=== PATIENT | male | born 1970 | race Caucasian/White ===

== ENCOUNTER 2021-06-06 06:00 | Outpatient (RCR) | payer SELFPAY | END 2021-07-02 23:59 | disposition home or self-care (01) | LOC: WR3 06:00 | PROVIDERS: Family Provider Nurse Practitioner; PCP Nurse Practitioner Family; Referring Provider Family Medicine; Visit Provider Family Medicine | DX: I69.151 Hemiplegia and hemiparesis following nontraumatic intracerebral hemorrhage affecting right dominant side (principal) | CPT/HCPCS: 92523; 97110; 97112; 97162; 97166; 97530 ==

== ENCOUNTER 2021-07-03 06:00 | Outpatient (RCR) | payer MEDICAID, SELFPAY | END 2021-08-01 23:59 | disposition home or self-care (01) | LOC: WR3 06:00 | PROVIDERS: Family Provider Nurse Practitioner; PCP Nurse Practitioner Family; Referring Provider Family Medicine; Visit Provider Family Medicine | DX: I69.151 Hemiplegia and hemiparesis following nontraumatic intracerebral hemorrhage affecting right dominant side (principal) | CPT/HCPCS: 97110 ==

== ENCOUNTER → 2021-08-28 08:23 | Outpatient (BNVA) | payer MEDICAID, SELFPAY | PROVIDERS: Family Provider Nurse Practitioner; PCP Family Medicine; Visit Provider Family Medicine | DX: I69.30 Unspecified sequelae of cerebral infarction (principal); I10 Essential (primary) hypertension; Z79.899 Other long term (current) drug therapy | CPT/HCPCS: 80053; 80061; 83036; 83880; 84443; 85025 ==

== ENCOUNTER → 2021-10-01 09:11 | Outpatient (BNVA) | payer MEDICAID, SELFPAY | PROVIDERS: Family Provider Nurse Practitioner; PCP Family Medicine; Visit Provider Family Medicine | DX: M54.50 Low back pain, unspecified (principal); W19.XXXA Unspecified fall, initial encounter; M25.569 Pain in unspecified knee; M25.551 Pain in right hip; M25.552 Pain in left hip | CPT/HCPCS: 72100; 73523; 73560 ==

== ENCOUNTER → 2021-12-31 14:32 | Outpatient (BNVA) | payer MEDICAID, SELFPAY | PROVIDERS: Family Provider Nurse Practitioner; PCP Family Medicine; Visit Provider Family Medicine | DX: R60.0 Localized edema (principal) | CPT/HCPCS: 80053; 83880 ==

== ENCOUNTER 2022-10-30 07:53 | Outpatient (CLI) | payer MEDICAID, SELFPAY ==
--- NOTE | 2022-10-30 09:30 | CT_ITS ---
WS: [id number] CT HEAD TECHNIQUE: Noncontrast CT of the head obtained from the skullbase to the vertex. CLINICAL INFORMATION: I69.30 - Unspecified sequelae of cerebral infarction COMPARISON: None. DLP: 1038.[address] scans at [facility] use at least one of these dose optimization techniques: automated e xposure control; mA and/or kV adjustment per patient size (includes targeted exams where dose is matc hed to clinical indication); or iterative reconstruction. FINDINGS: No evidence of intracranial hemorrhage or mass effect. Ventricular system and basal cisterns are rousseau nt. Minimal small vessel changes with mild parenchymal volume loss. No extra-axial fluid collections. No evidence of mass or mass effect. Vascular calcification. Paranasal sinuses and mastoid air cells are well aerated. .Normal visualized soft tissues. CT/CT head wo con* [id number] IMPRESSION: 1. No evidence of intracranial hemorrhage or mass effect. 2. Minimal small vessel changes. Mild parenchymal volume loss. 3. No acute intracranial findings.
== END 2022-10-30 07:54 | disposition home or self-care (01) ==
LOC: RAD 07:54
PROVIDERS: PCP Family Medicine; Visit Provider Family Medicine
DX: I69.30 Unspecified sequelae of cerebral infarction (principal)
CPT/HCPCS: 70450

== ENCOUNTER → 2023-02-24 15:42 | Outpatient (BNVA) | payer MEDICAID, SELFPAY | PROVIDERS: PCP Family Medicine; Visit Provider Family Medicine | DX: E66.9 Obesity, unspecified (principal); I50.9 Heart failure, unspecified; I69.30 Unspecified sequelae of cerebral infarction | CPT/HCPCS: 80053; 80061; 83036; 84443; 85025 ==

== ENCOUNTER → 2023-03-31 10:22 | Outpatient (BNVA) | payer MEDICAID, SELFPAY | PROVIDERS: PCP Family Medicine; Visit Provider Family Medicine | DX: D75.1 Secondary polycythemia (principal); E66.01 Morbid (severe) obesity due to excess calories; R06.83 Snoring | CPT/HCPCS: 82668; 85025 ==

== ENCOUNTER 2023-04-28 09:00 | Outpatient (CLI) | payer MEDICAID, SELFPAY | END 2023-04-28 09:01 | disposition home or self-care (01) | LOC: SLEEP 04-29 10:36 | PROVIDERS: PCP Family Medicine; Visit Provider Family Medicine | DX: G47.33 Obstructive sleep apnea (adult) (pediatric) (principal); R09.02 Hypoxemia | CPT/HCPCS: G0399 ==

== ENCOUNTER → 2023-11-11 08:48 | Outpatient (BNVA) | payer MEDICARE, MEDICAID, SELFPAY | PROVIDERS: PCP Nurse Practitioner Family; Visit Provider Nurse Practitioner Family | DX: R53.83 Other fatigue (principal); I50.9 Heart failure, unspecified; I10 Essential (primary) hypertension; G47.33 Obstructive sleep apnea (adult) (pediatric) | CPT/HCPCS: 80053; 80061; 83880; 85025 ==

== ENCOUNTER → 2023-11-18 09:32 | Outpatient (BNVA) | payer MEDICARE, MEDICAID, SELFPAY | PROVIDERS: PCP Nurse Practitioner Family; Visit Provider Nurse Practitioner Family | DX: R07.9 Chest pain, unspecified (principal); I45.10 Unspecified right bundle-branch block | CPT/HCPCS: 93005 ==

== ENCOUNTER → 2024-01-18 09:12 | Outpatient (BNVA) | payer MEDICARE, SELFPAY | PROVIDERS: PCP Nurse Practitioner Family; Referring Provider Nurse Practitioner Family; Visit Provider Psychiatry & Neurology Neurology | DX: I69.351 Hemiplegia and hemiparesis following cerebral infarction affecting right dominant side (principal); I69.398 Other sequelae of cerebral infarction; I11.0 Hypertensive heart disease with heart failure; I50.9 Heart failure, unspecified | CPT/HCPCS: 99203 ==

== ENCOUNTER → 2024-01-20 14:11 | Outpatient (BNVA) | payer MEDICARE, SELFPAY | PROVIDERS: PCP Nurse Practitioner Family; Referring Provider Nurse Practitioner Family; Visit Provider Internal Medicine | DX: R07.9 Chest pain, unspecified (principal); I45.10 Unspecified right bundle-branch block; I44.7 Left bundle-branch block, unspecified | CPT/HCPCS: 93005; 99204 ==

== ENCOUNTER 2024-01-27 10:04 | Outpatient (CLI) | payer MEDICARE, SELFPAY ==
[2024-01-27 11:00] VITALS: BMI 47.5
--- NOTE | 2024-01-27 11:05 | ECG_ITS ---
[facility] Test Date: 2024-01-27 Pat Name: Gordon Quintero Department: Room: Gender: Male Systems Integration Manager: : 1970 Requested By: Fritz Ying Order Number: [id number] Litzy MD: Fritz Ying M.D. Interpretive Statements NAME OF STUDY: LEXISCAN SESTAMIBI STRESS TEST INDICATION: [Chest Pain] Procedure: At the baseline, the blood pressure was 106/58 mmHg with a heart rate of 76 bpm. The electrocardiogram showed normal sinus rhythm, right bundle branch block. The Lexiscan was infused over a period of 20 seconds. A total of 0.4 mg of Lexiscan was infused. The stress phase was continued for a total of 5 minutes. Heart rate was at the end of stress phase was 91 bpm and a blood pressure of 108/79 mmHg. The EKG at the peak infusion revealed normal sinus rhythm with no significant ST-T wave changes. Sestamibi was injected 20 seconds after the Lexiscan infusion. Blood pressure at the end of recovery phase was 110/86 mmHg with a heart rate of 85 bpm. Conclusion: 1. Normal EKG response to Lexiscan infusion 2. No Lexiscan induced chest pain or cardiac arrhythmia. 3. Normal blood pressure and heart rate response. 4. Sestamibi/sestamibi perfusion scan pending; see separate report. Electronically Signed On 02-04-2024 12:15:01 CDT by Fritz Ying M.D. [email or web address]
--- NOTE | 2024-01-27 11:06 | NMCV_ITS ---
NM [facility]ley perf SPECT r/s* [id number] Gordon Quintero Age: 54 Gender: M : 1970 Exam Date: 01/27/2024 11:06 Ordering Phys: Fritz Ying M.D ([email or web address]) Technologist: YOMI Rodriguez Exam Location: [facility] Indications: CHEST PAIN STRESS TEST Please see separate stress test report in [facility] for full findings IMAGE PROTOCOL Rest/Stress 1 Lexiscan Day Radiopharmaceutical Dose (mCi) Administration Site Administered by Rest: Tc-99m 10.9 IV YOMI Rodriguez Sestamibi Stress:Tc-99m 33.0 IV YOMI Rodriguez Sestamibi Rest: 27-Jan-2024 60 Discovery 630 Stress: 27-Jan-2024 30 Discovery 630 0.4mg Lexiscan. Supine position only as patient was unable to lay prone. SPECT RESULTS Technical Quality: Excellent Raw Data Analysis: Normal Image Corrections: No attenuation or motion correction applied Summed Stress Score: 4 Summed Rest Score: 6 Summed Difference Score: 1 PERFUSION FINDINGS There is a small sized area of fixed perfusion defect of moderate intensity in the inferior wall. This is consistent with small area of prior infarct in the RCA territory. FUNCTIONAL RESULTS (calculated via Gated SPECT) Stress Image LV EF (%): 59 Stress EDV (mL):104 TID: 0.99 Stress ESV (mL):43 FUNCTIONAL FINDINGS: There is normal left ventricular systolic function. IMPRESSIONS 1. Small area of prior infarct seen in the RCA territory. 2. LV systolic function is normal Fritz Ying MD (Electronically Signed) Final Date: 30 January 2024 07:37 S
[2024-01-27] MEDS: regadenoson 0.4 Mg/5 ml Syringe 0.400000000000000022 MG IVP (12:05)
[2024-01-27 12:25] VITALS: BP 110/74; PULSE 62
== END 2024-01-27 10:05 | disposition home or self-care (01) ==
LOC: CDL 10:05
PROVIDERS: PCP Nurse Practitioner Family; Visit Provider Internal Medicine
DX: R07.9 Chest pain, unspecified (principal)
CPT/HCPCS: 36415; 78452; 93017; 96374; A9500; J2785

== ENCOUNTER 2024-02-02 09:02 | Outpatient (CLI) | payer MEDICARE, SELFPAY ==
--- NOTE | 2024-02-02 09:15 | USCV_ITS ---
Gordon Quintero Age: 54 Gender: M : 1970 Exam Date: 02/02/2024 09:15 Ordering Phys: Fritz Ying M.D ([email or web address]) Technologist: Exam Location: [facility] Indication: hx cva BP: 119 / 70 HR: 76 Rhythm: Sinus Technical Quality: Adequate MEASUREMENTS (Male / Female) Normal Values 2D ECHO LV Diastolic Diameter PLAX 3.2 cm 4.2 - 5.9 / 3.9 - 5.3 cm IVS Diastolic Thickness 1.5 cm 0.6 - 1.0 / 0.6 - 0.9 cm IVS Systolic Thickness 1.8 cm LVPW Diastolic Thickness 1.1 cm 0.6 - 1.0 / 0.6 - 0.9 cm LVPW Systolic Thickness 2.0 cm LVOT Diameter 2.1 cm LV Ejection Fraction 2D Teich 57.5 % LV Ejection Fraction MOD 2C 63.8 % LV Ejection Fraction 2C AL 63.5 % LA Diameter 3.5 cm RA Systolic Volume 4C AL 51.4 ml RA Systolic Volume 4C MOD 48.8 ml Aorta at Sinotubular Diameter 2.8 cm IVC Diameter 2.0 cm DOPPLER AV Peak Velocity 122.0 cm/s LVOT Peak Velocity 106.0 cm/s AV Area Cont Eq vti 4.0 cm squared AV Area Cont Eq pk 3.1 cm squared MV Peak Velocity 82.0 cm/s MV Area PHT 4.6 cm squared Mitral E to A Ratio 0.9 TV Peak Velocity 81.0 cm/s TR Peak Velocity 104.0 cm/s TR Peak Gradient 4.3 mmHg TV Peak E Velocity 79.0 cm/s Right Atrial Pressure 3.0 mmHg Pulmonary Artery Systolic Pressu 7.3 mmHg PV Peak Velocity 85.0 cm/s FINDINGS Left Ventricle Left ventricle is normal size. LV systolic function is normal with EF of 55 to 60%. No regional wall motion abnormalities are seen. Right Ventricle Normal in size and function Right Atrium Normal in size Left Atrium Normal in size Mitral Valve Structurally normal mitral valve. Trace mitral regurgitation. Aortic Valve Structurally normal aortic valve. No significant stenosis or regurgitation. Tricuspid Valve Mild tricuspid regurgitation. Insufficient TR jet to calculate RVSP. Pulmonic Valve Not well visualized Pericardium Normal Aorta Normal in size IVC Appears to be normal CONCLUSIONS LV systolic function is normal with EF of 55-60% Trace mitral regurgitation Mild tricuspid regurgitation No comparison studies are available. Fritz Ying MD (Electronically Signed) Final Date: 13 February 2024 19:22 S
== END 2024-02-02 09:03 | disposition home or self-care (01) ==
LOC: RAD 09:02
PROVIDERS: PCP Nurse Practitioner Family; Visit Provider Internal Medicine
DX: R06.02 Shortness of breath (principal); I08.1 Rheumatic disorders of both mitral and tricuspid valves
CPT/HCPCS: 93306

== ENCOUNTER 2024-03-01 09:05 | Outpatient (CLI) | payer MEDICARE, SELFPAY ==
--- NOTE | 2024-03-01 09:15 | MR_ITS ---
WS: [id number] MRI BRAIN WITH AND WITHOUT CONTRAST HISTORY: I61.9 - Nontraumatic intracerebral hemorrhage, unspecified COMPARISON: None available. TECHNIQUE: Multiplanar imaging performed through the brain with MultiHance 10/30/2022 ml's IV. Normal diffusion imaging. Scattered T2 and FLAIR signal hyperintensities in the brain. Hemosiderin de position in the LEFT thalamus. Probably from an old hemorrhagic infarct. Ventricles and extra-axial spaces are normal. Clivus and pituitary gland are normal. Visualized posterior fossa and brainstem are also normal. Postcontrast images are negative for masses or vascular malformations. Dural venous sinuses are normal. Paranasal sinuses: Well aerated with no significant disease. Mastoid air cells: Normal. Calvarium and scalp: Normal. MR/MR head wo/w con [id number] IMPRESSION: 1. No acute diffusion abnormality or enhancing mass. 2. 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 3. Mild small vessel ischemic type changes bilaterally in the supratentorial b rain. No additional infarct.
--- NOTE | 2024-03-01 10:00 | MR_ITS ---
WS: [id number] MRA ANGIOGRAPHY NATIVE OF [place] HISTORY: I61.9 - Nontraumatic intracerebral hemorrhage, unspecified COMPARISON: Noncontrast CT head TECHNIQUE: 3-D MR angiography is performed of the [place]. All images are reviewed including source images. Distal vertebral and basilar arteries are intact with no significant stenosis or plaque. Posterior ce rebral arteries are normal course and caliber. Posterior communicating arteries are both patent. Intracranial portion of the internal carotid arteries are normal course and caliber. No significant a therosclerosis, stenosis or aneurysm identified. Middle and anterior cerebral arteries are both paten t with no significant disease. Anterior communicating artery is also normal. MR/MR angio head wo con [id number] IMPRESSION: Normal MRA [place].
[2024-03-01] MEDS: gadobenate dimeglumine 20 mL vial IV (10:03)
== END 2024-03-01 09:06 | disposition home or self-care (01) ==
LOC: RAD 09:05
PROVIDERS: PCP Nurse Practitioner Family; Referring Provider Psychiatry & Neurology Neurology; Visit Provider Psychiatry & Neurology Neurology
DX: I61.9 Nontraumatic intracerebral hemorrhage, unspecified (principal)
CPT/HCPCS: 70544; 70553; A9577

== ENCOUNTER → 2024-03-30 08:21 | Outpatient (BNVA) | payer MEDICARE, SELFPAY | PROVIDERS: PCP Nurse Practitioner Family; Visit Provider Nurse Practitioner Family | DX: R53.83 Other fatigue (principal); E78.5 Hyperlipidemia, unspecified; I10 Essential (primary) hypertension; E78.2 Mixed hyperlipidemia | CPT/HCPCS: 80053; 80061; 85025 ==

== ENCOUNTER → 2024-04-25 13:14 | Outpatient (BNVA) | payer MEDICARE, SELFPAY | PROVIDERS: PCP Nurse Practitioner Family; Visit Provider Psychiatry & Neurology Neurology | DX: I69.351 Hemiplegia and hemiparesis following cerebral infarction affecting right dominant side (principal); I11.0 Hypertensive heart disease with heart failure; I50.9 Heart failure, unspecified; Z87.891 Personal history of nicotine dependence | CPT/HCPCS: 99212 ==

== ENCOUNTER → 2024-04-28 08:46 | Outpatient (BNVA) | payer MEDICARE, SELFPAY | PROVIDERS: PCP Nurse Practitioner Family; Visit Provider Nurse Practitioner Family | DX: I10 Essential (primary) hypertension (principal); I83.813 Varicose veins of bilateral lower extremities with pain; Z87.898 Personal history of other specified conditions; Z87.891 Personal history of nicotine dependence | CPT/HCPCS: 99214 ==

== ENCOUNTER → 2024-05-25 13:45 | Outpatient (BNVA) | payer MEDICARE, SELFPAY | PROVIDERS: PCP Nurse Practitioner Family; Visit Provider Nurse Practitioner Family | DX: I10 Essential (primary) hypertension (principal); F19.982 Other psychoactive substance use, unspecified with psychoactive substance-induced sleep disorder | CPT/HCPCS: 80053; 80061; 84443 ==

== ENCOUNTER 2024-06-14 08:26 | Outpatient (CLI) | payer MEDICARE, SELFPAY ==
--- NOTE | 2024-06-14 08:30 | US_ITS ---
WS: [id number] ULTRASOUND ABDOMEN LIMITED CLINICAL INFORMATION: R74.8 - Abnormal levels of other serum enzymes COMPARISON: None. FINDINGS: Technically difficult study due to body habitus Liver Size: Enlarged Craniocaudal length: 20.7 cm. Echogenicity: Coarse Surface nodularity: None. Mass (size and location): None. Main portal vein not well visualized Bile ducts Intrahepatic ducts: Normal. Common bile duct diameter: 0.7 cm. Not well seen Gallbladder Normal. Gallstones: None. Gallbladder sludge: None. Gallbladder wall thickening: None. Pericholecystic fluid: None. Sonographic Tracy sign: Absent. Pancreas Not well visualized Right kidney: Normal. Hydronephrosis: None. Size: 11.3 cm x 6.1 cm x 5.7 cm. Aorta not well visualized. Normal IVC Ascites: None. US/US liver [id number] IMPRESSION: Technically difficult study due to body habitus 1. Hepatomegaly with coarse hepatic echotexture compatible with fatty infiltra tion. 2. Normal gallbladder. 3. Common bile duct not well visualized. 4. No hydronephrosis in the RIGHT kidney. 5. No other acute findings considering limitations
--- NOTE | 2024-06-14 08:48 | XR_ITS ---
WS: [id number] Examination: XR chest 2V* [id number] Reason for Exam: R06.00 - Dyspnea, unspecified Date: June 14, 2024 Comparison: None. Findings: The heart is nonenlarged. The mediastinum is not widened. The lungs are hyperinflated There is no pulmonary edema or pleural effusion. There is no dense consolidative change. Subtle wedging of mid to lower thoracic vertebral bodies are noted without subluxation. XR/XR chest 2V* [id number] IMPRESSION: The lungs are hyperinflated. I see no acute lung process.
--- NOTE | 2024-06-14 13:00 | USCV_ITS ---
Gordon Quintero Age: 54 Gender: M : 1970 Exam Date: 06/14/2024 09:34 Ordering Phys: Ale Ibarra Technologist: CT Exam Location: [facility] [place] [facility] [place] Indication: HISTORY: PROCEDURES: FINDINGS: The veins were found to be easily compressible with spontaneous blood flow. Non pulsatile flow pattern. Venous reflux was noted on the right side at the level of the below- knee segment of the greater saphenous vein. The reflux time of 4.3 seconds. Base diameter was 0.4 cm and was at a depth of 0.2 cm No severe venous reflux were noted on the left side CONCLUSIONS 1. No evidence of DVT in the above-mentioned identifiable veins 2. Significant venous reflux of greater than 500 ms at the level of the below-knee segment of the greater saphenous vein on the right side. However the vein was found to be very superficial 3. No significant venous reflux on the left side Dr Curt Stafford MD [facility] (Electronically Signed) Final Date: 23 June 2024 00:08 S
== END 2024-06-14 08:27 | disposition home or self-care (01) ==
LOC: RAD 08:28
PROVIDERS: PCP Nurse Practitioner Family; Visit Provider Nurse Practitioner Family
DX: R16.0 Hepatomegaly, not elsewhere classified (principal); J98.4 Other disorders of lung; I87.2 Venous insufficiency (chronic) (peripheral); R74.8 Abnormal levels of other serum enzymes; R06.00 Dyspnea, unspecified
CPT/HCPCS: 71046; 76705; 93970

== ENCOUNTER → 2024-07-13 08:19 | Outpatient (BNVA) | payer MEDICARE, SELFPAY | PROVIDERS: PCP Nurse Practitioner Family; Visit Provider Nurse Practitioner Family | DX: R74.8 Abnormal levels of other serum enzymes (principal); I69.30 Unspecified sequelae of cerebral infarction | CPT/HCPCS: 82977; 83615; 84450; 84460; 84478 ==

== ENCOUNTER → 2025-04-12 14:24 | Outpatient (BNVA) | payer MEDICARE, SELFPAY | PROVIDERS: PCP Nurse Practitioner Family; Visit Provider Psychiatry & Neurology Neurology | DX: I69.30 Unspecified sequelae of cerebral infarction (principal); R29.90 Unspecified symptoms and signs involving the nervous system; I63.9 Cerebral infarction, unspecified | CPT/HCPCS: 80053; 80061; 99212 ==